=== PATIENT | male | born 1950 | race Caucasian/White ===

== ENCOUNTER → 2016-12-16 | Outpatient (CLI) | payer BC ==
--- NOTE | 2016-12-16 13:48 | KCIC ---
MRI lumbar spine without contrast 12/16/2016 INDICATION: Bilateral leg weakness. Low back pain. COMPARISON: MRI lumbar spine July 07, 2014 TECHNIQUE: Multiplanar, multisequence MR imaging of the lumbar spine was performed without intravenous contrast. FINDINGS: There is minimal retrolisthesis of L5 on S1. Marrow signal intensity is normal on all sequences. Disc heights are maintained. Minimal disc desiccation is identified at L3-L4, L4-L5 and L5-S1. Conus terminates at L1-L2. There is loss of normal CSF signal in the ventral subarachnoid space at the T12-L1 vertebral level, similar to the prior examination from July 07, 2014. There is anterior and posterior epidural lipomatosis throughout the lumbosacral spine. 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 L3-L4: There is a disc bulge with annular fissure. There is moderate facet arthropathy with ligamentum flavum infolding. Findings result in severe spinal canal stenosis, exacerbated by epidural lipomatosis. Moderate right and [id number] left neural foraminal stenosis. L4-L5: There is diffuse disc bulge with central disc protrusion. Severe facet arthropathy. Findings result in severe spinal canal stenosis, exacerbated by epidural lipomatosis. There is moderate neural foraminal stenosis. L5-S1: There is minimal disc bulge. Moderate facet arthropathy. Moderate neural foraminal stenosis. Severe spinal canal stenosis secondary to epidural lipomatosis. IMPRESSION: 1. 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 Findings are not significantly changed since the prior examination from July 07, 2014. 2. There is similar appearance of a suspected intradural, extra medullary lesion along the anterior aspect of the distal cord at the T12-L1 vertebral level. Further evaluation with a contrast-enhanced examination may be of benefit if patient's renal function improves. Electronically signed by: Mariam Tao MD (12/16/2016 1:45 PM) [facility]
== END | disposition home or self-care (01) ==
LOC: KCIC MRI 12:18
PROVIDERS: ATTEND Anesthesiology
DX: M48.061 Spinal stenosis, lumbar region without neurogenic claudication (principal); E88.2 Lipomatosis, not elsewhere classified; R53.1 Weakness
CPT/HCPCS: 72148

== ENCOUNTER 2018-10-24 06:52 | Emergency (ER) | payer MEDICARE ==
[~2018-10-24] VITALS: Ht 170.2 cm; Wt 142.9 kg
[~2018-10-24 06:52] MED LIST: ASPI325T8 PO; BUPR100T8 PO; CLOP75TA PO; CRESTOR20 MG PO; DULO60CA6 PO; FERR325T14 PO; FOLI1TAB16 PO; FURO40TA4 PO; ISOS30TA4 PO; ISOS60TA2 PO; LOSA-73 PO; METO-247 PO; OMEP40CA5 PO; RANO10003 PO; TAMS0.4C97 PO
[2018-10-24 07:45] LABS: BASO % 1 % (0-3); EOS # 0.1 x10^3/uL (0.0-0.7); EOS % 1 % (0-3); HEMATOCRIT 34.8 % (39.0-53.0); HEMOGLOBIN 11.4 g/dL (13.0-17.5); LYMPH # 0.9 x10^3/uL (1.0-4.8); LYMPH % 11 % (24-48); MEAN CORPUSCULAR HEMOGLOBIN 25 pg (25-35); MEAN CORPUSCULAR HGB CONC 33 g/dL (31-37); MEAN CORPUSCULAR VOLUME 76 fL (79-100); MONO % 12 % (0-9); NEUT # 6.1 x10^3/uL (1.8-7.7); NEUT % 75 % (31-73); PLATELET COUNT 204 x10^3/uL (140-400); RED BLOOD COUNT 4.58 x10^6/uL (4.30-5.70); RED CELL DISTRIBUTION WIDTH 23.2 % (11.5-14.5); WHITE BLOOD COUNT 8.1 x10^3/uL (4.0-11.0)
[2018-10-24] MEDS ORDERED: fentaNYL PF VIAL 100 MCG/2 ML VIAL IV ONE (07:45)
[2018-10-24 08:02] LABS: CALCIUM 9.3 mg/dL (8.5-10.1); CREATININE 1.8 mg/dL (0.7-1.3); GFR 37.8; POTASSIUM 4.5 mmol/L (3.5-5.1)
[2018-10-24 08:08] LABS: ALBUMIN 3.7 g/dL (3.4-5.0); ALBUMIN/GLOBULIN RATIO 0.9 (1.0-1.7); TOTAL BILIRUBIN 0.6 mg/dL (0.2-1.0)
--- NOTE | 2018-10-24 08:10 | RAD ---
Right upper quadrant abdominal ultrasound History: Right upper quadrant pain. Comparison: None. Technique: Transabdominal ultrasound images are obtained. Findings: Pancreas is obscured due to overlying bowel gas. Liver is likely increased in echogenicity. There is markedly decreased through-transmission. Right hepatic lobe measures 18.2 cm. Sensitivity for detection of a focal liver lesion is very low. Suspect nodular contour of the liver. Portal flow is hepatopedal. No gallbladder wall thickening. No cholelithiasis. Sonographic Lebron sign is negative. Common bile duct is obscured due to overlying bowel gas. The right kidney measures 11.3 cm in length and is without evidence of obstruction. IVC appears patent. IMPRESSION: 1. Limited exam due to overlying bowel gas. 2. Hepatomegaly and fatty infiltration of the liver. Question cirrhosis. 3. No gallstones. Electronically signed by: Corby Burks MD (10/24/2018 8:08 AM) [facility]
[2018-10-24 08:22] LABS: ANISOCYTOSIS MOD; PLT ESTIMATE ADEQUATE (ADEQUATE)
--- NOTE | 2018-10-24 08:51 | RAD ---
PQRS Compliance Statement: One or more of the following individualized dose reduction techniques were utilized for this examination: 1. Automated exposure control 2. Adjustment of the mA and/or kV according to patient size 3. Use of iterative reconstruction technique CT ABDOMEN PELVIS WO CONTRAST Clinical Indication: Right upper abdominal and flank pain. Comparison: Limited abdominal ultrasound, earlier same day. Technique: Helical CT imaging of the abdomen and pelvis is performed without IV or oral contrast. Findings: Evaluation of solid organs and bowel is limited without oral and IV contrast, decreasing sensitivity for detection of pathology. Mild scarring or atelectasis in the right greater than left lung bases. Coronary artery disease. Cardiac size upper limits of normal. No pericardial effusion. There is respiratory motion artifact in the upper abdomen, limiting evaluation. By attenuation, there is no fatty infiltration of the liver. Nodular contour of the liver is not seen as was suggested on recent ultrasound. The liver size is normal. These findings are discordant with those seen on ultrasound but the ultrasound was technically limited. Therefore would disregard the ultrasound findings. Gallbladder, spleen, pancreas, adrenal glands, and abdominal aorta caliber are normal. There are at least 2 small left renal cysts. There is bilateral perinephric stranding. There is no hydronephrosis. Stomach unremarkable. No dilated small bowel. The appendix is small caliber. Scattered stool in the colon. No colon wall thickening. No abdominal adenopathy or free fluid. Urinary bladder is normal. Prostate size normal. Moderate-sized fat-containing right inguinal hernia. No pelvic free fluid. There appears to be epidural lipomatosis in the lower lumbar spine. IMPRESSION: No acute abdominal or pelvic abnormality. Electronically signed by: Corby Burks MD (10/24/2018 8:48 AM) [facility]
[2018-10-24 08:58] LABS: BARBITURATES NEG (NEG); BENZODIAZEPINES NEG (NEG); CANNABINOIDS NEG (NEG); COCAINE NEG (NEG); METHADONE NEG (NEG); OPIATES NEG (NEG); PHENCYCLIDINE NEG (NEG)
[2018-10-24 08:59] LABS: AMPHETAMINE/METHAMPHETAMINE NEG (NEG)
[2018-10-24 09:12] VITALS: BP 153/65
[2018-10-24] MEDS ORDERED: CYCL10TA2 PO (09:25)
--- NOTE | 2018-10-24 09:25 | PHYS DOC ---
Past Medical History Past Medical History: Depression, High Cholesterol, Hypertension, MD Past Surgical History: No Surgical History Alcohol Use: None Drug Use: None Adult General Chief Complaint Chief Complaint: ABDOMINAL PAIN HPI HPI Patient is a 68 year old male who brought in by EMS because of abdominal pain. Patient complaining of right upper quadrant pain as a gradual onset of constant sharp pain since last night with radiation to his back and rated his pain 8/10. Patient states the pain resolved at arrival to ER. Patient states that the same pain 2 weeks ago and was in the emergency room unremarkable evaluation. Patient denies nausea and vomiting, diarrhea and constipation, fever and chills, urinary symptom, chest pain. Review of Systems Review of Systems Constitutional: Denies fever or chills [] Eyes: Denies change in visual acuity, redness, or eye pain [] HENT: Denies nasal congestion or sore throat [] Respiratory: Denies cough or shortness of breath [] Cardiovascular: No additional information not addressed in HPI [] GI: Reports abdominal pain, denies nausea, vomiting, bloody stools or diarrhea [] : Denies dysuria or hematuria [] Musculoskeletal: Denies back pain or joint pain [] Integument: Denies rash or skin lesions [] Neurologic: Denies headache, focal weakness or sensory changes [] Endocrine: Denies polyuria or polydipsia [] All other systems were reviewed and found to be within normal limits, except as documented in this note. Current Medications Current Medications Current Medications Medications (Trade) Dose Ordered Sig/Aleksandra Start Time Stop Time Status Last Admin Dose Admin Fentanyl Citrate (Fentanyl 2ml Vial) 50 mcg 1X ONCE 10/24/18 07:45 10/24/18 07:47 DC 10/24/18 08:02 50 MCG Allergies Allergies Allergies Coded Allergies Type Severity Reaction Last Updated Verified No Known Allergies Allergy Unknown 10/04/18 Yes Physical Exam Physical Exam Constitutional: Well nourished, no acute distress, non-toxic appearance, morbidly obese. [] HENT: Normocephalic, atraumatic, oropharynx moist. Eyes: PERRLA, EOMI, conjunctiva normal, no discharge. [] Neck: Normal range of motion, no tenderness, supple, no stridor. [] Cardiovascular:Heart rate regular rhythm, no murmur [] Lungs & Thorax: Bilateral breath sounds clear to auscultation [] Abdomen: Bowel sounds normal, soft, no tenderness, no masses, no pulsatile masses. [] Skin: Warm, dry, no erythema, no rash. [] Back: No tenderness, no CVA tenderness. [] Extremities: No tenderness, no cyanosis, no clubbing, ROM intact, no edema. [] Neurologic: Alert and oriented X 3, normal motor function, normal sensory function, no focal deficits noted. [] Psychologic: Affect normal, mood normal. [] Current Patient Data Vital Signs Vital Signs Date Time Temp Pulse Resp B/P (MAP) Pulse Ox O2 Delivery O2 Flow Rate FiO2 10/24/18 08:02 29 97 Room Air 10/24/18 06:52 98.2 79 146/79 (101) 98.2 Lab Values Laboratory Tests Test 10/24/18 07:30 White Blood Count 8.1 x10^3/uL (4.0-11.0) Red Blood Count 4.58 x10^6/uL (4.30-5.70) Hemoglobin 11.4 g/dL (13.0-17.5) L Hematocrit 34.8 % (39.0-53.0) L Mean Corpuscular Volume 76 fL (79-100) L Mean Corpuscular Hemoglobin 25 pg (25-35) Mean Corpuscular Hemoglobin Concent 33 g/dL (31-37) Red Cell Distribution Width 23.2 % (11.5-14.5) H Platelet Count 204 x10^3/uL (140-400) Neutrophils (%) (Auto) 75 % (31-73) H Lymphocytes (%) (Auto) 11 % (24-48) L Monocytes (%) (Auto) 12 % (0-9) H Eosinophils (%) (Auto) 1 % (0-3) Basophils (%) (Auto) 1 % (0-3) Neutrophils # (Auto) 6.1 x10^3/uL (1.8-7.7) Lymphocytes # (Auto) 0.9 x10^3/uL (1.0-4.8) L Monocytes # (Auto) 1.0 x10^3/uL (0.0-1.1) Eosinophils # (Auto) 0.1 x10^3/uL (0.0-0.7) Basophils # (Auto) 0.0 x10^3/uL (0.0-0.2) Platelet Estimate Adequate (ADEQUATE) Large Platelets Occ Anisocytosis Mod Sodium Level 139 mmol/L (136-145) Potassium Level 4.5 mmol/L (3.5-5.1) Chloride Level 102 mmol/L (98-107) Carbon Dioxide Level 30 mmol/L (21-32) Anion Gap 7 (6-14) Blood Urea Nitrogen 22 mg/dL (8-26) Creatinine 1.8 mg/dL (0.7-1.3) H Estimated GFR (Cockcroft-Gault) 37.8 BUN/Creatinine Ratio 12 (6-20) Glucose Level 112 mg/dL (70-99) H Calcium Level 9.3 mg/dL (8.5-10.1) Total Bilirubin 0.6 mg/dL (0.2-1.0) Aspartate Amino Transferase (AST) 13 U/L (15-37) L Alanine Aminotransferase (ALT) 11 U/L (16-63) L Alkaline Phosphatase 123 U/L (46-116) H Creatine Kinase 55 U/L (39-308) Troponin I Quantitative < 0.017 ng/mL (0.000-0.055) Total Protein 8.0 g/dL (6.4-8.2) Albumin 3.7 g/dL (3.4-5.0) Albumin/Globulin Ratio 0.9 (1.0-1.7) L Lipase 66 U/L (73-393) L Laboratory Tests 10/24/18 07:30 Laboratory Tests 10/24/18 07:30 EKG EKG EKG interpreted by me. EKG at 0701 showed normal sinus rhythm at rate of 75, prolonged TN interval at 256, left bansal axis, normal QRS voltage, nonspecific intraventricular block, poor R-wave progress in anteroseptal leads, no acute ST and T-wave abnormalities. Radiology/Procedures Radiology/Procedures [facility] [address] [place] [address] IMAGING REPORT Signed PATIENT: CINDY RHODES ACCOUNT: [id number] : 1950 LOCATION: ER AGE: 68 SEX: M EXAM STATUS: REG ER ORD. PHYSICIAN: ALISON MARTE MD REASON: right upper abdominal and flank pain PROCEDURE: CT ABDOMEN PELVIS WO CONTRAST PQRS Compliance Statement: One or more of the following individualized dose reduction techniques were utilized for this examination: 1. Automated exposure control 2. Adjustment of the mA and/or kV according to patient size 3. Use of iterative reconstruction technique CT ABDOMEN PELVIS WO CONTRAST Clinical Indication: Right upper abdominal and flank pain. Comparison: Limited abdominal ultrasound, earlier same day. Technique: Helical CT imaging of the abdomen and pelvis is performed without IV or oral contrast. Findings: Evaluation of solid organs and bowel is limited without oral and IV contrast, decreasing sensitivity for detection of pathology. Mild scarring or atelectasis in the right greater than left lung bases. Coronary artery disease. Cardiac size upper limits of normal. No pericardial effusion. There is respiratory motion artifact in the upper abdomen, limiting evaluation. By attenuation, there is no fatty infiltration of the liver. Nodular contour of the liver is not seen as was suggested on recent ultrasound. The liver size is normal. These findings are discordant with those seen on ultrasound but the ultrasound was technically limited. Therefore would disregard the ultrasound findings. Gallbladder, spleen, pancreas, adrenal glands, and abdominal aorta caliber are normal. There are at least 2 small left renal cysts. There is bilateral perinephric stranding. There is no hydronephrosis. Stomach unremarkable. No dilated small bowel. The appendix is small caliber. Scattered stool in the colon. No colon wall thickening. No abdominal adenopathy or free fluid. Urinary bladder is normal. Prostate size normal. Moderate-sized fat-containing right inguinal hernia. No pelvic free fluid. There appears to be epidural lipomatosis in the lower lumbar spine. IMPRESSION: No acute abdominal or pelvic abnormality. Electronically signed by: Corby Burks MD (10/24/2018 8:48 AM) [facility] DICTATED and SIGNED BY: CORBY BURKS MD DATE: 10/24/18 0848 [facility] [address] [place], [place] [id number] IMAGING REPORT Signed PATIENT: CINDY RHODES ACCOUNT: [id number] : 1950 LOCATION: ER AGE: 68 SEX: M EXAM STATUS: REG ER ORD. PHYSICIAN: ALISON MARTE MD REASON: upper quadrant pain PROCEDURE: ABDOMEN LTD Right upper quadrant abdominal ultrasound History: Right upper quadrant pain. Comparison: None. Technique: Transabdominal ultrasound images are obtained. Findings: Pancreas is obscured due to overlying bowel gas. Liver is likely increased in echogenicity. There is markedly decreased through-transmission. Right hepatic lobe measures 18.2 cm. Sensitivity for detection of a focal liver lesion is very low. Suspect nodular contour of the liver. Portal flow is hepatopedal. No gallbladder wall thickening. No cholelithiasis. Sonographic Lebron sign is negative. Common bile duct is obscured due to overlying bowel gas. The right kidney measures 11.3 cm in length and is without evidence of obstruction. IVC appears patent. IMPRESSION: 1. Limited exam due to overlying bowel gas. 2. Hepatomegaly and fatty infiltration of the liver. Question cirrhosis. 3. No gallstones. Electronically signed by: Corby Burks MD (10/24/2018 8:08 AM) [facility] DICTATED and SIGNED BY: CORBY BURKS MD DATE: 10/24/18807 Course & Med Decision Making Course & Med Decision Making Pertinent Labs and Imaging studies reviewed. (See chart for details) Evaluation of patient in ER showed 68-year-old male patient with complaining of right upper quadrant since last night that is up at arrival to ER. Patient had unremarkable physical exam. Patient has chronic renal insufficiency with unremarkable gallbladder cyanosis or other injuries except for fatty liver. Patient requested pain medication while he was in ER and felt better with fentanyl. Plan discharge patient home with diagnosis of musculoskeletal abdominal pain. Dragon Disclaimer Nando Disclaimer This electronic medical record was generated, in whole or in part, using a voice recognition dictation system. Departure Departure Impression: Primary Impression: Musculoskeletal pain Additional Impressions: Morbid obesity Chronic renal insufficiency Fatty liver Disposition: HOME, SELF-CARE (at 0924) Condition: IMPROVED Referrals: JAKE CUI MD (PCP) Patient Instructions: Musculoskeletal Pain Additional Instructions: Follow-up with your primary care physician in 3-5 days Return to ER if not getting better Scripts Cyclobenzaprine Hcl (CYCLOBENZAPRINE HCL) 10 Mg Tablet 1 TAB PO TID, #21 TAB Prov: ALISON MARTE MD 10/24/18 Problem Qualifiers Additional Impressions: Chronic renal insufficiency Chronic kidney disease stage: unspecified stage Qualified Codes: N18.9 - C hronic kidney disease, unspecified ALISON MARTE MD Oct 24, 2018 09:25
--- NOTE | 2018-10-24 10:56 | EKG ---
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
== END 2018-10-24 09:47 | disposition home or self-care (01) ==
LOC: ER 06:52
DX: R10.11 Right upper quadrant pain (principal); I12.9 Hypertensive chronic kidney disease with stage 1 through stage 4 chronic kidney disease, or unspecified chronic kidney disease; N18.9 Chronic kidney disease, unspecified; K76.0 Fatty (change of) liver, not elsewhere classified; E66.01 Morbid (severe) obesity due to excess calories; Z68.42 Body mass index [BMI] 45.0-49.9, adult; E78.00 Pure hypercholesterolemia, unspecified; I25.2 Old myocardial infarction
CPT/HCPCS: 36415; 74176; 76705; 80053; 80307; 82550; 83690; 84484; 85025; 93005; 96374; 99285; J3010